=== PATIENT | female | born 1970 | race Caucasian/White ===

== ENCOUNTER 2016-11-12 17:54 | Emergency (ER) | payer SELFPAY ==
[2016-11-12 18:08] VITALS: PULSE 82
[2016-11-12] MEDS ORDERED: TORAdol 30 mg Injection IM ONE (18:15)
[2016-11-12] MEDS ORDERED: TORAdol 30 mg Injection ONE (18:18)
--- NOTE | 2016-11-12 18:19 | ERPHSYRPT ---
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 no other complaints or issues, no abnormalities noted Physician History: 45-year-old white female arrives with complaint of pain in her back of her head side of her head symptoms for 3 hours. She attributes this to being out in the sun. Patient states she gets these headaches fairly frequently she states these are tension headaches. She states she frequently goes to [facility] and gets a shot for them which takes the pain away. Patient denies any vomiting, has she has no fevers she does have photophobia. Past medical history is remarkable for headaches. Past surgical history positive for hysterectomy and . Social history positive for tobacco use. Timing/Duration: today (3 hours) Quality: aching Severity of Pain-Max: moderate Severity of Pain-Current: moderate Recent Head Trauma: occasional headaches Modifying Factors: Improves With: other (out in the heat today) Associated Symptoms: other (photophobia), No confusion, No dizziness, No fatigue , No facial pain, No fever/chills, No flushing, No light-headedness, No loss of consciousness, No nausea/vomiting, No nasal congestion, No nasal drainage, No neck pain, No numbness in legs/feet, No rash, No sweating, No scotoma, No seizures, No sinus infection, No sensitive to light, No speech problems, No stiff neck, No trouble walking, No vision changes, No visual disturbance, No weakness Previous symptoms: same symptoms as today Allergies/Adverse Reactions: promethazine [From Phenergan] Allergy (Verified 11/12/16 18:01) Hx Tetanus, Diphtheria Vaccination/Date Given: Yes Hx Influenza Vaccination/Date Given: No Hx Pneumococcal Vaccination/Date Given: No Immunizations Up to Date: Yes - Review of Systems Constitutional: No Fever, No Chills Eyes: Photophobia, No Discharge, No Eye Pain, No Eye Redness, No Itchy, No Tearing, No Vision Changes, No Double Vision, No Foreign Body Sensation Ears, Nose, & Throat: No Symptoms, No Ear Pain, No Ear Discharge, No Hearing Changes, No Tinnitus, No Nose Pain, No Nose Congestion, No Nose Discharge, No Sinus Drainage, No Epistaxis, No Mouth Pain, No Mouth Swelling, No Loose Teeth, No Throat Pain, No Throat Swelling, No Hoarse, No Painful Swallowing, No Snoring , No Stridor Respiratory: No Cough, No Dyspnea Cardiac: No Chest Pain, No Edema, No Syncope Abdominal/Gastrointestinal: No Abdominal Pain, No Nausea, No Vomiting, No Diarrhea Genitourinary Symptoms: No Dysuria Musculoskeletal: No Back Pain, No Neck Pain Skin: No Rash Neurological: Headache, No Dizziness, No Focal Weakness, No Sensory Changes Psychological: No Symptoms Endocrine: No Symptoms All Other Systems: Reviewed and Negative - Past Medical History Pertinent Past Medical History: Yes Neurological History: Migraines Cardiac History: High Cholesterol GI Medical History: GERD - Past Surgical History Past Surgical History: Yes Female Surgical History: Section - Social History Smoking Status: Current every day smoker Drug Use: none - Nursing Vital Signs Nursing Vital Signs: Initial Vital Signs Temperature 98.2 F 11/12/16 17:55 Pulse Rate 82 11/12/16 17:55 Respiratory Rate 16 11/12/16 17:55 Blood Pressure 150/96 11/12/16 17:55 O2 Sat by Pulse Oximetry 97 11/12/16 17:55 Pain Scale Pain Intensity 10 - Physical Exam General Appearance: moderate distress Eye Exam: PERRL/EOMI Ears, Nose, Throat Exam: normal ENT inspection, moist mucous membranes Neck Exam: normal inspection, supple, full range of motion, No meningismus Respiratory Exam: normal breath sounds, lungs clear Cardiovascular Exam: regular rate/rhythm, normal heart sounds Gastrointestinal/Abdominal Exam: soft, No tenderness, No distention Back Exam: normal inspection, normal range of motion Mental Status Exam: alert, oriented x 3, 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 Exam: normal speech, PERRL, No facial droop Coordination/Gait Exam: normal cerebellar function Motor/Sensory Exam: no motor deficit, no sensory deficit Skin Exam: normal color, warm, dry, No rash SpO2 Interpretation: normal (97%) SpO2: 97 Oxygen Delivery: Room Air - Course Nursing assessment & vital signs reviewed: Yes Ordered Tests: Medication Summary Discontinued Medications Generic Name Dose Route Start Last Admin Trade Name Erica PRN Reason Stop Dose Admin Ketorolac Tromethamine 60 mg 11/12/16 18:15 11/12/16 18:19 Toradol 30 Mg Injection IM 11/12/16 18:16 60 mg STAT ONE Administration Ketorolac Tromethamine Confirm 11/12/16 18:18 Toradol 30 Mg Injection Administered 11/12/16 18:19 Dose 60 mg .ROUTE .STK-MED ONE - Progress Progress: improved Progress Note: 11/12/16 18:47 Patient feeling better. Had received Toradol 60 mg IM Patient is asking to go home. Will release. - Departure Time of Disposition: 18:48 Departure Disposition: Home Clinical Impression: Headache Qualifiers: Headache type: unspecified Headache chronicity pattern: acute headache Intractability: not intractable Qualified Code(s): R51 - Headache Condition: Fair Critical Care Time: No Referrals: TOYA CABRAL [Primary Care Provider] - Instructions: Headache Additional Instructions: Return home. Rest in a dark quiet room. Plenty of fluids. Follow-up with your family DrDanielle if symptoms are recurrent. Return for acute distress or for severe symptoms.
[2016-11-12 18:52] VITALS: BP 150/80; O2SAT 98
== END 2016-11-12 18:55 | disposition home or self-care (01) ==
LOC: ED 17:54
DX: R51 Headache (principal)
CPT/HCPCS: 96372; 99284; J1885